=== PATIENT | female | born 1995 | race Caucasian/White ===

== ENCOUNTER 2024-09-24 00:33 | Emergency (ER) | payer MEDICAID, SELFPAY ==
--- NOTE | ~2024-09-24 | XR_ITS ---
EXAMINATION: XR CHEST CLINICAL INFORMATION: sob, bleach inhalation COMPARISON: None available. TECHNIQUE: Frontal view of the chest was obtained. FINDINGS: No significant abnormality is noted involving the heart, lungs, mediastinum, bony thorax or soft tissues. XR/XR chest 1V IMPRESSION: Unremarkable examination. Electronically signed by: Brennen Gong MD 09/24/2024 01:25 AM [facility]
[2024-09-24 00:37] VITALS: BP 112/78; BP 130/83; PULSE 94; PULSE 96; RESP 16; TEMP 37.1; O2SAT 98; O2SAT 99; BMI 33.8
--- NOTE | 2024-09-24 00:44 | ED.GENADULT ---
HPI - General Adult General Chief complaint: General Medical Stated complaint: COUGH Time Seen by Provider: 09/24/24 00:40 Source: patient and EMS Mode of arrival: EMS Limitations: no limitations History of Present Illness ED Provider: Dr. Floridalma Calderon HPI narrative: Patient comes to the emergency room complaining of cough. Patient states that she was at work earlier today, believes that she inhaled bleach. Patient denies any shortness of breath. Denies oral ingestion. Denies bleed splashing into her eyes. Related Data Allergies Allergy/AdvReac Type Severity Reaction Status Date / Time pollen extracts [POLLEN] Allergy Unknown SWELLEN Verified 09/24/24 00:50 HANDS Review of Systems Review of Systems: Constitutional : No Weight loss, No Fever, No Chills, No Night Sweats, No Fatigue, No Malaise ENT/Mouth : No Hearing loss, No Ear Pain, No Nasal Congestion, No Sinus Pain, No Hoarseness, No sore throat, No Rhinorrhea, No Swallowing Difficulty. Complaining of watery eyes Eyes: No Eye Pain, No Swelling, No Redness, No Foreign Body, No Discharge, No Vision Changes Cardiovascular : No Chest Pain, No SOB, No Dyspnea on Exertion, No Orthopnea, No Edema, No Palpitations Respiratory : Complaining of cough, no wheezing, no shortness of breath Gastrointestinal : No Nausea, No Vomiting, No Diarrhea, No Constipation, No abdominal Pain, No Hematochezia, No Melena Genitourinary : no irregular bleeding, No Dysuria, No Urinary Frequency, No Hematuria, No Urinary Incontinence, No Urgency, No Flank Pain, No Urinary Flow Changes, No Hesitancy Musculoskeletal : No joint pain, No Myalgias, No Joint Swelling Skin : No Skin Lesions, No rash Neuro : No Weakness, No Numbness, No Paresthesias, No Loss of Consciousness, No Dizziness, No Headache Psych : No Anxiety/Panic, No Depression, No SI/HI/AH/VH, No Social Issues, Heme/Lymph: No Bruising, No Bleeding,No Lymphadenopathy Endocrine : No Polyuria, No Polydipsia, No Temperature Intolerance [facility] Social History Social History Smoked in Last 30 Days: Yes Substance Use Type: Marijuana Advance Directives: No Advance Directives Information Provided: No Do you have a plan to hurt others: No Plan Patient : No Physical Exam ED Vital Signs: Vital Signs - 24 hr 09/24/24 00:37 09/24/24 00:51 Temperature 98.8 F 98.8 F Pulse Rate 96 96 Respiratory Rate 16 16 Blood Pressure 130/83 130/83 Pulse Oximetry 98 98 Oxygen Delivery Method Room Air Room Air BMI result Body Mass Index 33.8 Const Other: Appearance: Alert. Oriented X3. No acute distress. Well-appearing Eyes: Pupils equal, round and reactive to light. ENT: Pharynx normal. Neck: Normal inspection. Neck supple. No lymph nodes noted. No crepitus CVS: Normal heart rate and rhythm. Pulses normal. Normal S1 and S2 Respiratory: No respiratory distress. Breath sounds normal. No Wheezing. No rales Abdomen: Soft and nontender. No rigidity. No distention. Skin: Skin warm and dry. Normal skin color. Normal skin turgor. Extremities: No lower extremity edema. No Lacerations. No Rash Neuro: Oriented X 3. No motor deficit. No sensory deficit. Moving all extremities. No slurred speech. CN 2 through 12 grossly intact Psych: calm, cooperative, normal affect Course Course Course Narrative: Chest x-ray pending. Medical Decision Making Medical Decision Making [facility] Narrative: My interpretation of chest x-ray, no acute abnormality. No ARDS. Patient is currently asymptomatic, no longer coughing. Independent Interpretation I performed an independent interpretation of an: Plain X-Ray Radiology Impression Discussion of test interpretation with radiology: I have reviewed the radiologist's reading. Radiologist Impression: No significant abnormality is noted involving the heart, lungs, mediastinum, bony thorax or soft tissues. XR/XR chest 1V IMPRESSION: Unremarkable examination. Discharge Plan Discharge Clinical Impression: Accidental exposure to bleach Patient Disposition: Home, Self-Care Instructions: Asthma (ED) Additional Instructions: Please follow-up with your primary care physician tomorrow. If you have any worsening or new symptoms, please return to the emergency room or call 911 Print Language: Sami
[2024-09-24 00:51] VITALS: BP 130/83; PULSE 96; RESP 16; TEMP 37.1; O2SAT 98
[2024-09-24] MEDS: Acetaminophen 325 MG TABLET 975 MG PO (01:52)
[2024-09-24 01:53] VITALS: BP 130/83; PULSE 96; RESP 16; TEMP 37.1; O2SAT 98
== END 2024-09-24 01:55 | disposition home or self-care (01) ==
PROVIDERS: Emergency Provider Emergency Medicine
DX: R05.9 Cough, unspecified (principal); R06.02 Shortness of breath; T54.91XA Toxic effect of unspecified corrosive substance, accidental (unintentional), initial encounter; Y92.89 Other specified places as the place of occurrence of the external cause
CPT/HCPCS: 71045; 99284

== ENCOUNTER 2025-03-30 13:54 | Outpatient (REF) | payer MEDICAID, SELFPAY ==
[2025-03-30 16:28] LABS: MANUAL DIFF FLAG NO
[2025-03-30 16:35] LABS: Basophils Percent Auto 0.5 % (0-2); Eosinophils Absolute Auto 0.3 X10*3/uL (0.0-0.4); Eosinophils Percent Auto 3.4 % (0-4); Hematocrit 43.2 % (37.0-47.0); Hemoglobin 14.6 g/dl (12.0-16.0); Imm Gran Abs Auto 0.04 X10*3/uL (0.00-0.03); Imm Gran Pct Auto 0.5 % (0.0-0.4); Lymphocytes Absolute Auto 2.9 X10*3/uL (1.2-4.9); Lymphocytes Percent Auto 33.3 % (20-40); Mean Corpuscular HGB Conc 33.8 g/dl (31.0-35.0); Mean Corpuscular Hemoglobin 31.3 pg (27.0-33.0); Mean Corpuscular Volume 92.5 fL (80.0-98.0); Mean Platelet Volume 10.4 fL (9.4-12.3); Monocytes Absolute Auto 0.5 X10*3/uL (0.1-1.2); Monocytes Percent Auto 5.8 % (2-11); Neutrophils Absolute Auto 4.8 x10*3/uL (2.0-8.3); Neutrophils Percent Auto 56.5 % (45-73); Platelet Count 268 X10*3/uL (160-400); Red Blood Count 4.67 X10*6/uL (4.20-5.50); Red Cell Distribution Width 12.8 % (11.0-16.0); White Blood Count 8.6 X10*3/uL (4.8-10.8)
[2025-03-30 16:50] LABS: Rheumatoid Factor < 13.0 IU/mL (<15.0)
[2025-03-30 17:01] LABS: Alanine Aminotransferase 20 U/L (0-31); Albumin Level 4.4 g/dL (3.5-5.0); Alkaline Phosphatase 96 U/L (39-117); Anion Gap 10 (12-20); Aspartate Amino Transferase 27 U/L (5-31); Bilirubin Total 0.3 mg/dL (0.0-1.0); Blood Urea Nitrogen 9 mg/dL (9-16); C Reactive Protein 0.53 mg/dL (< or = 0.50); Calcium 9.2 mg/dL (8.4-10.2); Carbon Dioxide 28 mmol/L (22-29); Chloride 105 mmol/L (96-108); Cholesterol 182 mg/dL (<200); Estimated Glomerular Filt Rate > 60; Glucose Random 93 mg/dL (60-115); HDL Cholesterol 36 mg/dL (>40); LDL Cholesterol Calculated 114 mg/dL (<100); Potassium 4.4 mmol/L (3.3-5.1); Sodium 139 mmol/L (135-145); Total Protein 7.4 g/dL (6.5-8.0); Triglycerides 163 mg/dL (<150)
[2025-03-30 17:06] LABS: TSH reflex Free T4 0.75 uIU/mL (0.32-4.0)
[2025-03-30 17:23] LABS: Erythrocyte Sedimentation Rate 7 MM/HR (0-20); Estimated Average Glucose 108 mg/dL; Hemoglobin A1c % 5.4 % (<6.0)
[2025-03-31 03:20] LABS: CT PCR Urine NOT DETECTED (Not Detect.); NG PCR Urine NOT DETECTED (Not Detect.)
[2025-03-31 09:45] LABS: HIV AB/AG Nonreactive (Nonreactive); HIV Num 1 0.06 S/CO (0.00-0.99); ~HepC Num1 0.14 S/CO (0.00-0.79); ~Hepatitis C Antibody Nonreactive (Nonreactive)
[2025-04-02 10:50] LABS: Anti Nuclear Antibody Screen NEGATIVE (NEGATIVE)
[2025-04-03 08:04] LABS: RPR Rapid Plasma Reagin NON-REACTIVE (NON-REACTIVE)
== END 2025-03-30 13:55 | disposition home or self-care (01) ==
LOC: HO.HHCX 13:54
DX: M25.561 Pain in right knee (principal); G89.29 Other chronic pain; R53.82 Chronic fatigue, unspecified; Z00.00 Encounter for general adult medical examination without abnormal findings
CPT/HCPCS: 36415; 80053; 80061; 83036; 84443; 85025; 85652; 86038; 86140; 86431; 86592; 86803; 87389; 87491; 87591

== ENCOUNTER 2025-03-30 14:21 | Outpatient (REF) | payer MEDICAID, SELFPAY ==
--- NOTE | ~2025-03-30 | XR_ITS ---
EXAMINATION: XR KNEE, RIGHT CLINICAL INFORMATION: r knee pain COMPARISON: None available. TECHNIQUE: Four views of the right knee. FINDINGS: No fracture or joint effusion. Alignment is anatomic. Joint spaces are maintained. No abnormal soft tissue calcification. XR/XR knee RT 4V IMPRESSION: Normal right knee. Electronically signed by: Avinash Alvarado MD 03/30/2025 02:35 PM EDT
== END 2025-03-30 14:22 | disposition home or self-care (01) ==
LOC: HO.HHCX 14:21
DX: M25.561 Pain in right knee (principal); G89.29 Other chronic pain
CPT/HCPCS: 73564

== ENCOUNTER → 2025-03-30 14:22 | Outpatient (BNV) | payer MEDICAID, SELFPAY | PROVIDERS: Visit Provider Radiology Diagnostic Radiology | DX: M25.561 Pain in right knee (principal) | CPT/HCPCS: 73564 ==

== ENCOUNTER 2025-05-02 15:39 | Outpatient (REF) | payer MEDICAID, SELFPAY ==
--- NOTE | ~2025-05-02 | XR_ITS ---
EXAMINATION: XR LUMBOSACRAL SPINE CLINICAL INFORMATION: chronic back pain COMPARISON: None available. TECHNIQUE: Three views of the lumbosacral spine. FINDINGS: The vertebral bodies and posterior elements are normal. The disc spaces are preserved and the vertebral alignment is normal. The paraspinal soft tissues are normal. XR/XR lumbar spine 2-3V IMPRESSION: Unremarkable examination. Electronically signed by: Steven Chi MD 05/02/2025 04:36 PM EDT RP
--- NOTE | ~2025-05-02 | XR_ITS ---
EXAMINATION: XR SHOULDER, LEFT CLINICAL INFORMATION: chronic shoulder pain COMPARISON: None available. TECHNIQUE: AP external rotation, Grashey, scapular Y, and axillary views of the left shoulder. FINDINGS: On the AP external rotation view, there is subtle elevation of distal clavicle relative to acromion. Otherwise, there is no degenerative change, dislocation, or other abnormalities. XR/XR shoulder LT min 2V IMPRESSION: Possible type II AC joint separation. Electronically signed by: Steven Chi MD 05/02/2025 04:35 PM EDT
--- NOTE | ~2025-05-02 | XR_ITS ---
EXAMINATION: XR THORACIC SPINE CLINICAL INFORMATION: pain COMPARISON: None available. TECHNIQUE: 3 views of the thoracic spine were obtained. FINDINGS: There is convex left curvature of the thoracic spine that does not meet the definition of scoliosis. Otherwise, vertebral body height and alignment is preserved. XR/XR thoracic spine 2V IMPRESSION: Unremarkable examination. Electronically signed by: Steven Chi MD 05/02/2025 04:36 PM EDT
--- OUTSIDE RECORDS SUMMARY | 2025-05-02 16:16 | XMS_ITS | Encounter Summary ---
Author Organization [employer] Address [address] [place] [address] Care Team Providers Care Bindery Technician Name Role Phone Jim Valle CNP Primary Care Provider [phone] Reason for Visit * Reason Onset Date Comments No Show 04/27/2025 9:30 Follow up a ppointment no show with Jim Valle. Letter will be sent out to reschedule Encounter Details Date Type Department Care Team ([facility] Contact Info) Description 04/27/2025 Telephone [facility] [address] [place] [address] Jim Valle CNP [address] [place], [place] [id number] No Show (9:30 Follow up appointment no show with Jim Valle. Letter will be sent out to reschedule ) Social History Tobacco Use Types Packs/Day Years Used Date Smoking Tobacco: Every Day Cigarettes Smokeless Tobacco: Never Alcohol Use Standard Drinks/Week Comments Never 0 (1 standard drink = 0.6 oz pur e alcohol) Depression Answer Date Recorded Patient Health Questionnaire-9 Score 17 03/30/2025 Patient Health Questionnaire-9 Score 17 03/30/2025 Last PHQ-9: Questionnaire Data Not on file 0 03/30/2025 Housing Stability Answer Date Recorded What is your housing situation today? I have germania rodriguez 03/30/[address] you li ve. Do you have problems with any of the following? None of the above 03/30/2025 Food Insecurity Answer Date Recorded Within the past 12 months, y ou worried that your food would run out before you got money to buy more: Never True 03/30/2025 Within the past 12 months,th e food you bought just didn't last and you didn't have enough money to get more: Never True Transportation Answer Date Recorded In the past 12 months, has l ack of transportation kept you from medical appts, meetings, work or from getting things needed for daily living? Yes, it has kept me from non-medical meetings, work, or getting things that I need 03/30/2025 Utilities Answer Date Recorded In the past 12 months, has t he electric, gas, oil or water company threatened to shut off services in your home? Yes 03/30/2025 Depression Answer Date Recorded Patient Health Questionnaire-2 Score 3 03/30/2025 Internet Access Answer Date Recorded Internet Access Q1 Yes 03/30/2025 Internet Access Q2 Not on file 03/30/2025 Comments No Sex and Gender Information Value Date Recorded Sex Assigned at Female 08/03/2022 10:18 AM EDT Legal Sex Female 10:18 AM EDT Gender Identity Female 03/28/2025 11:46 AM EDT Sexual Orientation Straight 03/28/2025 11 :46 AM EDT documented as of this encounter Miscellaneous Notes * Telephone Encounter - Avinash Jenkins MA - 04/27/2025 10:16 AM EDT 9:30 Follow up appointment no show with Jim Valle. Letter will be sent out to reschedule documented in this encounter Plan of Treatment Not on file documented as of this encounter Visit Diagnoses Not on filedocumented in this encounter Additional Health Concerns Assessment Noted Time PHQ-9 Depression Total Score: 17 025 2:08 PM EDT documented as of this encounter Care Teams Bindery Technician Relationship Specialty Start Date End Date Jim Valle CNP [address] [place] [id number] PCP - General Family Medicine 03/30/25 documented as of this encounter
== END 2025-05-02 15:40 | disposition home or self-care (01) ==
LOC: HO.HHCX 15:39
DX: M25.512 Pain in left shoulder (principal); M54.9 Dorsalgia, unspecified
CPT/HCPCS: 72070; 72100; 73030

== ENCOUNTER → 2025-05-02 15:45 | Outpatient (BNV) | payer MEDICAID, SELFPAY | PROVIDERS: Visit Provider Radiology Diagnostic Radiology | DX: M54.50 Low back pain, unspecified (principal); M54.6 Pain in thoracic spine; M25.512 Pain in left shoulder | CPT/HCPCS: 72070; 72100; 73030 ==

== ENCOUNTER 2025-06-01 11:30 | Outpatient (AMB) | payer MEDICAID, SELFPAY ==
[2025-06-01 11:31] VITALS: BP 101/68; PULSE 99; RESP 16; O2SAT 99; BMI 32.4
--- NOTE | 2025-06-01 11:31 | A.OFFVIS_ITS ---
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 The patient reports severe pain not only in the lower back but also in the shoulder and knee, which has been persistent for several years. The shoulder pain is associated with noticeable asymmetry and a lump, while the knee pain originated from an injury at work. She reports her most significant pain is over the left scapula. The patient describes the pain as severe and debilitating, impacting her daily activities and sleep. She experiences exacerbation of symptoms with certain positions and activities, such as standing or walking for extended periods, which leads to swelling and increased discomfort. The patient has tried various interventions, including child care attendant school and TENS unit therapy, with limited relief. Additionally, the patient reports symptoms consistent with carpal tunnel syndrome, including hand pain, cramping, and difficulty with electronics scale tester strength, which have persisted for approximately five years. The symptoms have progressively worsened over the past two years, significantly affecting her ability to perform daily tasks. The patient also reports a history of depression, for which she is currently taking sertraline. - Onset: Pain has been persistent for several years, worsening over the past two years. - Quality: Described as severe, debilitating, and piercing. - Primary Location: Shoulder, knee, and lower back. - Radiation: Pain radiates to the hand, causing cramping and difficulty with electronics scale tester strength. - Exacerbating Factors: Standing, walking, and certain sleeping positions. - Relieving Factors: None identified, despite attempts with child care attendant school and TENS unit therapy. - Interference: Pain interferes with daily activities and sleep. - Affect: Pain significantly impacts mood and psychological wellbeing, contributing to depression. - Analgesia: Current medications include sertraline; muscle relaxants and ibuprofen have been ineffective. - Activities of Daily Living: Pain limits ability to perform daily tasks and affects sleep quality. - Aberrant Drug Related Behaviors: None reported. [facility] Social History (System 03/30/25 @ 14:09 by Carley Avila) Substance Use Type: Marijuana Review of Systems Const Details: - Musculoskeletal: Reports chronic pain in shoulder, knee, and lower back; reports hand pain and cramping. - Neurological: Reports difficulty with electronics scale tester strength and dropping objects. - Psychiatric: Reports depression; denies any other psychiatric symptoms. Physical Exam Exam Exam: General: awake, alert, oriented. Answers questions appropriately. Fully engaged in examination. Skin: warm, dry, intact HEENT: Normocephalic. Hearing intact. Cardiac: External chest normal in appearance. Respiratory: No cough, audible wheezing or stridor. Abdomen: without gross distension. MS: No obvious swelling or deformities. Tenderness along left trapezius with palpable trigger points Nontender over midline cervical vertebrae and cervical paraspinal muscles Full cervical range of motion Bilateral upper extremity strength 5/5 Neurological: Oriented to person, place, time and situation. Thought process intact. No gait abnormalities appreciated. Psychiatric: Appropriate mood and affect. Good judgment and insight. Vital Signs: Last Vital Signs Pulse 99 06/01/25 11:31 Resp 16 06/01/25 11:31 BP 101/68 06/01/25 11:31 Pulse Ox 99 06/01/25 11:31 Oxygen Delivery Method Room Air 06/01/25 11:31 BMI result Body Mass Index 32.4 Results Reviewed Results Reviewed: 04/2025 XR/XR thoracic spine 2V FINDINGS: There is convex left curvature of the thoracic spine that does not meet the definition of scoliosis. Otherwise, vertebral body height and alignment is preserved. IMPRESSION: Unremarkable examination. 04/2025 XR/XR shoulder LT min 2V FINDINGS: On the AP external rotation view, there is subtle elevation of distal clavicle relative to acromion. Otherwise, there is no degenerative change, dislocation, or other abnormalities. IMPRESSION: Possible type II AC joint separation. Assessment & Plan Assessment & Plan (1) Myofascial muscle pain: Code(s): M79.18 - Myalgia, other site Category: Medical (2) Chronic pain syndrome: Code(s): G89.4 - Chronic pain syndrome Category: Medical Plan During the consultation, I discussed the management of chronic pain with the patient, emphasizing the importance of physical therapy to alleviate muscle tension and improve mobility. We also considered the potential use of trigger point injections if physical therapy does not provide adequate relief. I explained the introduction of pregabalin (Lyrica) as a treatment option, starting at a low dose to monitor tolerance and effectiveness, while being cautious of its impact on her depression. The patient was informed about the potential side effects of gabapentin, particularly its impact on depression, and we agreed to avoid it initially. I provided guidance on the use of ibuprofen, advising against regular use to prevent rebound effects and potential kidney issues. We discussed the logistics of attending physical therapy sessions, including the availability of a hospital shuttle service for transportation. Patient was informed and verbally consented to the use of an ambient scribe for clinic note documentation during this visit Orders: Orders PT Evaluation and Treatment Today M79.18 - Myalgia, other site Medications: New pregabalin (Lyrica) Do not take with alcohol. Do not take with any other ENVIRONMENT[employer] HE[employer]IST depressants. May cause drowsiness. No driving while taking this medication. 25 mg PO BID 60 caps 0RF Patient Instructions: - Start physical therapy as prescribed to help with pain management. - Take pregabalin (Lyrica) at bedtime, starting with a low dose to assess tolerance then can advance to twice daily. - Avoid regular use of ibuprofen to prevent potential rebound effects and kidney issues. - Utilize the hospital shuttle service for transportation to physical therapy sessions if needed. - Follow up after completing physical therapy to reassess pain management strategies. Coding Level of Care Code New Pt Level 4 (60867) Complex EM visit Add On G2211 Diagnoses Myofascial muscle pain M79.18 Chronic pain syndrome G89.4
--- OUTSIDE RECORDS SUMMARY | 2025-06-01 12:30 | XMS_ITS | Clinical Summary ---
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 mg/dLBorderline High Cholesterol: 200-239 mg/dLHigh Cholesterol: greater than 239 mg/dL LDL Cholesterol Calculated 114(H) <100 mg/dL [facility] Comment:Desirable LDL: less than 100 mg/dLNear Optimal/Above Optimal LDL: 110- 129 mg/dLBorderline High LDL: 130-159 mg/dLHigh LDL: 160-189 mg/dLVery High LDL: greater than or equal to 190 mg/dL HDL Cholesterol 36(L) >40 mg/dL [facility] Comment:Desirable HDL: great er than 40 mg/dL Note: This HDL assay may give artificially low results in patients with liver disease. Blood Venous blood specimen / Unknown 03/30/2025 2:01 PM EDT 03/30/2025 4:25 PM EDT [facility] LAB BLOOD ORDERABLES Daali l Result Performing Organization Address [facility] Co de Phone Number [facility] [address] [place] [address] [phone] * (ABNORMAL) Comprehensive Metabolic Panel (03/30/2025 2:01 PM EDT) Sodium 139 135 - 145 mmol/L [facility] Potassium 4.4 3.3 - 5.1 mmol/L [facility] Chloride 105 96 - 108 mmol/L [facility] Carbon Dioxide 28 22 - 29 mmol/L [facility] Anion Gap 10(L) 12 - 20 [facility] Urea Nitrogen (BUN) 9 9 - 16 mg/dL [facility] Creatinine, Serum 0.74 0.5 - 1.4 mg/dL [facility] Estimated Glomerular Filt Rate >60 [facility] Comment:Chronic Kidney Disea se: Estimated GFR < 60 mL/min/1.78n5Ljirbm Kidney Disease: Estimated GFR < 15 mL/min/1.73m2 Glucose 93 60 - 115 mg/dL [facility] Calcium 9.2 8.4 - 10.2 mg/dL [facility] Bilirubin, Total 0.3 0.0 - 1.0 mg/dL [facility] Aspartate Amino Transferase 27 5 - 31 U/L [facility] Alanine Aminotransferase 20 0 - 31 U/L [facility] Total Protein 7.4 6.5 - 8.0 g/dL [facility] Albumin Level 4.4 3.5 - 5.0 g/dL [facility] Alkaline Phosphatase 96 39 - 117 U/L [facility] Blood Venous blood specimen / Unknown 03/30/2025 2:01 PM EDT 03/30/2025 4:25 PM EDT [facility] LAB BLOOD ORDERABLES Adali l Result [facility] [address] [place] [phone] * Chlamydia/Trichomonas/Neisseria gonorrhoeae, PCR, Urine (03/30/2025 11:14 AM EDT) CT PCR, Urine NOT DETECTED Not Detect. [facility] Comment:A not detected test result does not exclude the possibilityof infection because test results can be affected byimproper specimen collection, concurrent antibiotic therapy,or the number of organisms in the specimen which may bebelow the sensitivity of the test. As with many diagnostictests, results from the Xpert CT/NG assay should beinterpreted in conjunction with other laboratory andclinical data available to the clinician.The Xpert CT/NG assay should not be used for the evaluationof suspected sexual abuse or for other medico-legalindications. Additional testing is recommended in anycircumstance when false positive or false negative resultscould lead to adverse medical, social or psychologicalconsequences. NG PCR, Urine NOT DETECTED Not Detect. [facility] Comment:A not detected test result does not exclude the possibilityof infection because test results can be affected byimproper specimen collection, concurrent antibiotic therapy,or the number of organisms in the specimen which may bebelow the sensitivity of the test. As with many diagnostictests, results from the Xpert CT/NG assay should beinterpreted in conjunction with other laboratory andclinical data available to the clinician.The Xpert CT/NG assay should not be used for the evaluationof suspected sexual abuse or for other medico-legalindications. Additional testing is recommended in anycircumstance when false positive or false negative resultscould lead to adverse medical, social or psychologicalconsequences. 03/30/2025 11:1 4 AM EDT 03/30/2025 4:20 PM EDT [facility] LAB URINE ORDERABLES Adali caceres Result [facility] [address] [place], [place] [phone] from Last 3 Months [facility] [address] [place] [phone] Care Teams Purification Supervisor Relationship Specialty Start Date End Date Jim Valle CNP [address] [place] [phone] PCP - General Family Medicine 03/30/25
== END 2025-06-01 12:05 | disposition home or self-care (01) ==
LOC: HO.PMC 11:31
PROVIDERS: Visit Provider Registered Nurse Emergency
DX: M79.18 Myalgia, other site (principal); G89.4 Chronic pain syndrome
CPT/HCPCS: 99204

== ENCOUNTER → 2025-06-01 11:30 | Outpatient (BNVA) | payer MEDICAID, SELFPAY | PROVIDERS: Visit Provider Registered Nurse Emergency | DX: M79.18 Myalgia, other site (principal); G89.4 Chronic pain syndrome | CPT/HCPCS: 99212 ==

== ENCOUNTER 2025-07-10 10:02 | Outpatient (RCR) | payer MEDICAID, SELFPAY ==
--- NOTE | 2025-07-10 10:55 | MHC.PT.EP ---
[facility] [place] [facility] [place] [facility] [place] [facility] [address] Zena Gandhi [address] [phone] F: [phone] F: [phone] F: [phone] F: [phone] Physical Therapy Plan of Care Date of Evaluation: 07/10/25 Date of Surgery: NA Diagnosis: Myalgia Myofascial muscle pain, L upper back pain Assessment: Laurel is a 29 year female who is referred to PT for myofascial pain, L upper back pain . She reports of having pain in her upper back and L shoulder for about 2 years. She denies any trauma or falls but has been carrying heavy weights and grocery on L side for up to an hour. On PT examination she presented with TTP over L thoracic paraspinals, medial border of L scapula, 8/10 pain in L shoulder and upper back, all shoulder and neck ROM WFL, decreased shoulder and scap strength, and altered posture. She presents with increased mobility in all joints and likes to stand with spine locked in extension. She is independent with self care activities but her boy friend does heavy lifting due to pain. She is unemployed. She would benefit from skilled PT to address the aforementioned impairments and improve tolerance to functional activites. Frequency and Duration: The patient will be seen 2/week for 5 weeks Short Term Goals: 1. Pt will have 50% decrease in pain which will enable her to fall asleep at night in 2 weeks 2. Pt will be able to move her trunk, shoulder and neck through full plane of motion without pain which will enable her to tolerate sitting without pain in 3 weeks Usp Goals: 1. Pt will be demonstrate an increase in muscle strength by 1 grade which will enable her to perform all ADLS with pain no more than 2/10 in 5 weeks 2. Pt will be independent with all HEP for symptom management and maintenance following d/c in 5 weeks. Treatment Plan: Modalities to reduce pain, spasms and effusion. Manual therapy to restore motion and function. Therapeutic exercise to improve strength and flexibility. Neuromuscular re-education for posture and balance. Therapeutic activities to return to functional activities of daily living. Electronically signed by: Luci Rolon PT DPT Please sign and return to therapist. Thank you for your referral.
--- NOTE | 2025-08-08 08:23 | MHC.PT.DC ---
[facility] [place] [facility] [place] [facility] [place] [facility] [address] Zena Gandhi [address] [phone] F: [phone] F: [phone] F: [phone] F: [phone] Physical Therapy Discharge Report Diagnosis: Myalgia Myofascial muscle pain, L upper back pain Date of Surgery: NA Date of Evaluation: 07/10/25 Date of Discharge: 08/08/25 Treatments to Date: 1 Cancellations to Date: 1 No Shows to Date: 2 Discharge Status: Visit Non-compliance Discharge Summary: Laurel attended her eval and canceled 1 and no showed 2. She is therefore being d/c from PT for non compliance. Electronically signed by: Luci Rolon PT DPT Please sign and return to therapist. Thank you for your referral.
== END 2025-08-08 08:23 | disposition home or self-care (01) ==
LOC: HO.PT 10:02
PROVIDERS: PCP Registered Nurse Emergency; Visit Provider Registered Nurse Emergency
DX: M79.18 Myalgia, other site (principal); M54.6 Pain in thoracic spine
CPT/HCPCS: 97112; 97161